=== PATIENT | male | born 1960 | race Caucasian/White ===

== ENCOUNTER 2021-10-14 00:20 | Emergency (ER) | payer MEDICARE ==
[2021-10-14 00:41] VITALS: O2SAT 98
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
[2021-10-14 00:50] LABS: Hematocrit 42.6 % (42-50); Hemoglobin 14.9 gm/dl (12.5-18.0); Mean Cell Volume 96.4 fl (78-100); Mean Corpuscular Hemoglobin 33.7 pg (26-32); Mean Platelet Volume 9.5 fl (7.5-11.0); Platelet Count 215 K/mm3 (150-450); Red Blood Count 4.42 M/mm3 (4.1-5.6); Red Cell Distribution Width 12.6 % (11.5-14.0); White Blood Count 6.9 K/mm3 (4.0-10.5)
[2021-10-14 01:03] LABS: ALBUMIN 4.4 g/dL (3.5-5.0); ALKALINE PHOSPHATASE 58 U/L (38-126); ANION GAP 19.9 MEQ/L (5-15); BLOOD UREA NITROGEN 20 mg/dL (9-20); CHLORIDE 101 mmol/L (98-107); Calcium 9.5 mg/dL (8.4-10.2); Carbon Dioxide 20 mmol/L (22-30); EST GLOMERULAR FILTRATION RATE > 60.0 ML/MIN; ETHYL ALCOHOL 20 mg/dL (0-10); Glucose 83 mg/dL (74-106); Potassium 3.9 mmol/L (3.5-5.1); SGOT/AST 51 U/L (17-59); SGPT/ALT 58 U/L (0-50); SODIUM 137 mmol/L (137-145)
[2021-10-14 03:41] VITALS: BP 117/86; PULSE 98
[2021-10-14 04:50] LABS: Eosinophil 4 % (0.00-3.0); Lymphocytes 35 % (24-44); Monocyte 10 % (0.0-12.0); Neutrophils 51 % (36.-66.); Platelet Estimate NORMAL (NORMAL); Total Cells Counted 100
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
== END 2021-10-14 01:26 ==
LOC: ED 00:20
DX: M54.2 Cervicalgia (principal); R07.9 Chest pain, unspecified; S81.811A Laceration without foreign body, right lower leg, initial encounter; S00.511A Abrasion of lip, initial encounter; V29.3XXA Motorcycle rider (driver) (passenger) injured in unspecified nontraffic accident, initial encounter; G20 Parkinson's disease; J44.9 Chronic obstructive pulmonary disease, unspecified; Z72.0 Tobacco use; Z79.899 Other long term (current) drug therapy
CPT/HCPCS: 36415; 72040; 80053; 85025; 93005; 99284; G0480; 80307

== ENCOUNTER 2022-01-03 15:48 | Day surgery (SDC) | payer MEDICARE ==
[2022-01-03] MEDS ORDERED: LIDOCAINE HCL 1% 50 MG/5 ML VL PF IJ ONE (15:49)
[2022-01-03] MEDS ORDERED: Decadron 4 MG INJ IV ONE (15:49)
[2022-01-03] MEDS ORDERED: Sodium Chloride 0.9(Preservative Free) 10 ML IJ ONE (15:49)
[2022-01-03] MEDS ORDERED: Lactated Ringers 1,000 ML IV ONE (17:19)
--- NOTE | 2022-01-03 18:13 | XRAY ---
Indication: Cervical DEJAN. Intraoperative fluoroscopy provided for 29 seconds. 2 digital spot image submitted for interpretation demonstrates posterior midline needle tip projecting posterior to the cervical thoracic junction. Small amount of contrast injected for needle tip placement. Correlate with intraoperative findings/report.
--- NOTE | 2022-01-04 12:53 | XRAY ---
29 seconds of fluoroscopy was used in surgery for a cervical DEJAN.
== END 2022-01-03 17:29 | disposition home or self-care (01) ==
LOC: SDC-PAIN 15:48
PROVIDERS: ATTEND Psychiatry & Neurology Pain Medicine
DX: M54.12 Radiculopathy, cervical region (principal); Z79.899 Other long term (current) drug therapy
CPT/HCPCS: 62321; 72040; 77003; J1100; J2001; Q9966

== ENCOUNTER 2022-01-10 21:52 | Emergency (ER) | payer MEDICARE ==
[2022-01-10] MEDS ORDERED: XYLOCAINE 1% HCL 20 ML MDV IJ ONE (21:53)
[2022-01-10 22:16] VITALS: O2SAT 98
[2022-01-10 22:27] LABS: Appearance SLIGHTLY CLOUDY (CLEAR); Bilirubin SMALL (NEGATIVE); Dipstick done @ ? MAIN LAB; Glucose NEGATIVE (NEGATIVE); Ketones NEGATIVE (NEGATIVE); Nitrite NEGATIVE (NEGATIVE); Ph 5.5 (5-6); Protein,Urine Dip 30 (Negative); RBC TRACE-LYSED Ery/ul (0-5); Specific Gravity >=1.030 (1.005-1.025); Urobilinogen 1 mg/dL (0-1)
[2022-01-10 22:29] LABS: Bacteria FEW /HPF (NEGATIVE); Mucus SLIGHT /HPF (NEGATIVE); WBC >100 /HPF (0-5)
[2022-01-10 22:32] LABS: Urine Cultured Indicated? YES
--- NOTE | 2022-01-10 22:34 | ERPHSYRPT ---
- History of Present Illness Time Seen by Provider: 01/10/22 22:15 Source: patient Exam Limitations: no limitations Patient Subjective Stated Complaint: pt states he has been having difficulty urinating and burning when urinating for last 4-5 days. since yesterday has been having lower back pain Triage Nursing Assessment: pt alert and oriented, answers questions approp. pt ambulatory with steady gait noted. respirations nonlabored. skin warm and dry. urine cloudy and elisha. Physician History: This is a 61-year-old white male has a history of prostate issues and hypertension. He has had difficulty urinating and last 4 to 5 days. It is been a long time since he seen a urologist. In the last 4 to 5 days he has noticed not only difficulty urinating but also flank pain and dysuria. He has no significant abdominal pain but does have some mild suprapubic pressure. He has no chest pain he has no shortness of breath. He has not had a fever. Timing/Duration: day(s) Activites at Onset: none Quality: burning (With urination) Onset Location: generalized flank Pain Radiation: right flank, left flank, other (Dysuria) Severity of Pain-Max: mild Severity of Pain-Current: mild Modifying Factors: Improves With: urinating (Burning and pain with urination) Associated Symptoms: dysuria, No fever, No chills Prior abdominal problems: none Sexual intercourse history: non-contributory Allergies/Adverse Reactions: codeine Allergy (Verified 01/10/22 22:16) Home Medications: Carbidopa/Levodopa [Carbidopa-Levodopa 25-100 Tab] 1 tab PO QID 10/14/21 [History] Duloxetine HCl 30 mg [Cymbalta 30 MG Capsule] 60 mg PO DAILY 10/14/21 [History] Hydroxyzine HCl 25 mg [Atarax 25 mg] 1 tab PO BID PRN 10/14/21 [History] Prazosin HCl 1 cap PO HS 10/14/21 [History] Propranolol HCl 1 tab PO TID 10/14/21 [History] Sildenafil Citrate 1 tab PO DAILY PRN 10/14/21 [History] Topiramate 1 tab PO BID 10/14/21 [History] Hx Tetanus, Diphtheria Vaccination/Date Given: Yes Hx Influenza Vaccination/Date Given: No Hx Pneumococcal Vaccination/Date Given: No Immunizations Up to Date: Yes Travel Risk - International Travel Have you traveled outside of the country in past 3 weeks: No - Coronavirus Screening Are you exhibiting any of the following symptoms?: No Close contact with a COVID-19 positive Pt in past 14-21 Days: No - Vaccine Status Have you recieved a Covid-19 vaccination: Yes 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[employer] - Past Medical History Pertinent Past Medical History: Yes Neurological History: No Pertinent History ENT History: Cataracts Cardiac History: No Pertinent History Respiratory History: COPD Endocrine Medical History: No Pertinent History Musculoskeletal History: Fractures GI Medical History: No Pertinent History History: No Pertinent History Psycho-Social History: Anxiety, Depression Male Reproductive Disorders: No Pertinent History Other Medical History: Parkinsons Disease, PTSD - Past Surgical History Past Surgical History: Yes Neuro Surgical History: No Pertinent History Cardiac: No Pertinent History Respiratory: No Pertinent History Gastrointestinal: Hernia Repair Genitourinary: No Pertinent History Musculoskeletal: No Pertinent History Male Surgical History: No Pertinent History Other Surgical History: throat surgery (stetching and mass removal). cervical epidural last week - Social History Smoking Status: Current every day smoker How long have you smoked: 50 years Exposure to second hand smoke: No Drug Use: none Patient Lives Alone: Yes - Review of Systems Constitutional: No Symptoms Eyes: No Symptoms Ears, Nose, & Throat: No Symptoms Respiratory: No Symptoms Cardiac: No Symptoms Abdominal/Gastrointestinal: Abdominal Pain (Suprapubic pressure) Genitourinary Symptoms: Dysuria, Flank Pain (Bilateral) Skin: No Symptoms Neurological: No Symptoms Psychological: No Symptoms Endocrine: No Symptoms Hematologic/Lymphatic: No Symptoms Immunological/Allergic: No Symptoms All Other Systems: Reviewed and Negative - Nursing Vital Signs Nursing Vital Signs: Initial Vital Signs Temperature 98.4 F 01/10/22 22:04 Pulse Rate 88 01/10/22 22:04 Respiratory Rate 16 01/10/22 22:04 Blood Pressure 99/75 01/10/22 22:04 O2 Sat by Pulse Oximetry 98 01/10/22 22:04 Pain Scale Pain Intensity 5 - Physical Exam General Appearance: no apparent distress, alert, anxiety Eye Exam: PERRL/EOMI, eyes nml inspection Ears, Nose, Throat Exam: normal ENT inspection, moist mucous membranes Neck Exam: normal inspection, non-tender, supple, full range of motion Respiratory Exam: normal breath sounds, lungs clear, airway intact, No chest tenderness, No respiratory distress Cardiovascular Exam: regular rate/rhythm, normal heart sounds, normal peripheral pulses Gastrointestinal/Abdomen Exam: soft, normal bowel sounds, No tenderness Rectal Exam: not done Back Exam: normal inspection, normal range of motion, CVA tenderness (Mild bilateral), No vertebral tenderness Extremity Exam: normal inspection, normal range of motion, pelvis stable Neurologic Exam: alert, oriented x 3, 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, 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, normal mood/affect, nml cerebellar function, nml station & gait, sensation nml Skin Exam: normal color, warm, dry Lymphatic Exam: No adenopathy SpO2 Interpretation: normal SpO2: 98 O2 Delivery: Room Air - Course Nursing assessment & vital signs reviewed: Yes Ordered Tests: Active Orders 24 hr Category Date Time Status CULTURE,URINE Stat Lab 01/10/22 22:16 Received UA W/RFX CULTURE Stat Lab 01/10/22 22:16 Completed Lab/Rad Data: Laboratory Results 01/10/22 Range/Units 22:16 Urinalys Dipstick Clnc MAIN LAB Urine Color YELLOW (YELLOW) Urine Appearance SLIGHTLY CLOUDY (CLEAR) Urine pH 5.5 (5-6) Ur Specific [place] >=1.030 (1.005-1.025) POC Urine Protein Conf 30 (Negative) Urine Ketones NEGATIVE (NEGATIVE) Urine Nitrite NEGATIVE (NEGATIVE) Urine Bilirubin SMALL (NEGATIVE) Urine Urobilinogen 1 (0-1) mg/dL Urine Leukocytes SMALL (NEGATIVE) Urine WBC (Auto) >100 (0-5) /HPF Urine RBC (Auto) 6-10 (0-2) /HPF U Epithel Cells (Auto) NONE (FEW) /HPF Urine Bacteria (Auto) FEW (NEGATIVE) /HPF Urine RBC TRACE-LYSED (0-5) Jean Claude/ul Calcium Oxalate Crystal 11-25 (NEGATIVE) /HPF Urine Mucus (Auto) SLIGHT (NEGATIVE) /HPF Ur Culture Indicated? YES Urine Glucose NEGATIVE (NEGATIVE) mg/dL - Progress Progress: improved, pain not gone completely Counseled pt/family regarding: lab results, diagnosis, need for follow-up - Departure Departure Disposition: Home Clinical Impression: UTI (urinary tract infection) Condition: Stable Critical Care Time: No Additional Instructions: Drink plenty of fluids. Take your medication as prescribed. May add Tylenol and ibuprofen for pain control if there are no contraindications. Follow-up with a urologist for further evaluation of your prostate and urinary issues. Prescriptions: Ciprofloxacin [Cipro 500 MG] 500 mg PO BID #14 tablet Phenazopyridine HCl 200 mg [Pyridium 200 mg] 200 mg PO TID #6 tablet
[2022-01-10] MEDS ORDERED: Rocephin 1000 MG INJ IM ONE (22:39)
[2022-01-10] MEDS ORDERED: PYRIDIUM 200 MG PO ONE (22:40)
[2022-01-10] MEDS ORDERED: PYRIDIUM 200 MG ONE (22:47)
[2022-01-10] MEDS ORDERED: Rocephin 1000 MG INJ ONE (22:47)
[2022-01-10 23:12] VITALS: BP 112/75; PULSE 82
== END 2022-01-10 23:10 | disposition home or self-care (01) ==
LOC: ED 21:52
DX: N39.0 Urinary tract infection, site not specified (principal); R30.0 Dysuria; R10.9 Unspecified abdominal pain; I10 Essential (primary) hypertension; J44.9 Chronic obstructive pulmonary disease, unspecified; Z72.0 Tobacco use; Z79.899 Other long term (current) drug therapy
CPT/HCPCS: 81015; 87086; 96372; 99283; J0696; A9270-GY

== ENCOUNTER 2022-02-07 14:26 | Day surgery (SDC) | payer MEDICARE ==
[2022-02-07] MEDS ORDERED: Sodium Chloride 0.9(Preservative Free) 10 ML IJ ONE (14:27)
[2022-02-07] MEDS ORDERED: XYLOCAINE-MPF 1% 5ML SDV IJ ONE (14:27)
[2022-02-07] MEDS ORDERED: Decadron 4 MG INJ IV ONE (14:27)
[2022-02-07] MEDS ORDERED: Lactated Ringers 1,000 ML IV ONE (16:43)
--- NOTE | 2022-02-07 20:15 | XRAY ---
Indication: Cervical DEJAN. Intraoperative fluoroscopy provided for 29 seconds. 2 digital spot images submitted for interpretation demonstrates midline posterior needle tip projecting posterior to the cervicothoracic junction. Small amount of contrast injected for needle tip placement. Correlate with intraoperative findings/report.
--- NOTE | 2022-02-08 09:44 | XRAY ---
29 seconds of fluoroscopy was used in surgery for a cervical spine DEJAN.
== END 2022-02-07 17:00 | disposition home or self-care (01) ==
LOC: SDC-PAIN 14:26
PROVIDERS: ATTEND Psychiatry & Neurology Pain Medicine
DX: M54.12 Radiculopathy, cervical region (principal); Z79.899 Other long term (current) drug therapy
CPT/HCPCS: 62321; 72040; 77003; J1100; Q9966

== ENCOUNTER 2022-08-16 15:09 | Emergency (ER) | payer MEDICARE ==
--- NOTE | 2022-08-16 15:13 | ERPHSYRPT ---
- History of Present Illness Time Seen by Provider: 08/16/22 15:13 Historian: patient Exam Limitations: clinical condition Physician History: This is a 62-year-old white male patient of Dr. Anjana Garnica who presented emergently to the emergency department driven by his mother because of sudden onset of chest pain approximately 2-2 and half hours prior to evaluation in the emergency department. The patient noticed his heart racing at approximately 1 PM followed by sharp stabbing central substernal nonradiating chest pain. Patient had a similar episode several years ago and his recollection was that he passed out and when he woke up his symptoms were resolved. Patient has a history of COPD, PTSD, Parkinson's disease, anxiety and is a daily smoker of cigarettes. He states that there is been no new medications. He has never seen a head of it. He has no abdominal pain. He has had no fevers. Timing/Duration: today Activities at Onset: none Quality: sharpness, stabbing Location: substernal, central Chest Pain Radiation: no radiation Severity of Pain-Max: moderate Severity of Pain-Current: moderate Modifying Factors: Improves With: nothing Associated Symptoms: palpitations (Rapid heartbeat), No abdominal pain Prior Chest Pain/Cardiac Workup: no prior cardiac workup Nitro Today/Relief: no nitro taken today Aspirin Treatment Today: no aspirin today Allergies/Adverse Reactions: codeine Allergy (Verified 08/16/22 15:32) Home Medications: Carbidopa/Levodopa [Carbidopa-Levodopa 25-100 Tab] 1 tab PO QID 10/14/21 [History] Duloxetine HCl 30 mg [Cymbalta 30 MG Capsule] 60 mg PO DAILY 10/14/21 [History] Hydroxyzine HCl 25 mg [Atarax 25 mg] 1 tab PO BID PRN 10/14/21 [History] Prazosin HCl 1 cap PO HS 10/14/21 [History] Propranolol HCl 1 tab PO TID 10/14/21 [History] Sildenafil Citrate 1 tab PO DAILY PRN 10/14/21 [History] Topiramate 1 tab PO BID 10/14/21 [History] Hx Tetanus, Diphtheria Vaccination/Date Given: Yes Hx Influenza Vaccination/Date Given: No Hx Pneumococcal Vaccination/Date Given: No Travel Risk - International Travel Have you traveled outside of the country in past 3 weeks: No - Coronavirus Screening Are you exhibiting any of the following symptoms?: No Close contact with a COVID-19 positive Pt in past 14-21 Days: No - Vaccine Status Have you recieved a Covid-19 vaccination: Yes 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 Systems Constitutional: No Symptoms Eyes: No Symptoms Ears, Nose, & Throat: No Symptoms Respiratory: No Symptoms Cardiac: Chest Pain, Palpitations (Rapid heart rate upon arrival to the emergency department with SVT and heart rate on the monitor 224) Abdominal/Gastrointestinal: No Symptoms Genitourinary Symptoms: No Symptoms Musculoskeletal: No Symptoms Skin: No Symptoms Neurological: No Symptoms Psychological: No Symptoms Endocrine: No Symptoms Hematologic/Lymphatic: No Symptoms Immunological/Allergic: No Symptoms All Other Systems: Reviewed and Negative - Past Medical History Pertinent Past Medical History: Yes Neurological History: No Pertinent History ENT History: Cataracts Cardiac History: No Pertinent History Respiratory History: COPD Endocrine Medical History: No Pertinent History Musculoskeletal History: Fractures GI Medical History: No Pertinent History History: No Pertinent History Psycho-Social History: Anxiety, Depression Male Reproductive Disorders: No Pertinent History Other Medical History: Parkinsons Disease, PTSD - Past Surgical History Past Surgical History: Yes Neuro Surgical History: No Pertinent History Cardiac: No Pertinent History Respiratory: No Pertinent History Gastrointestinal: Hernia Repair Genitourinary: No Pertinent History Musculoskeletal: No Pertinent History Male Surgical History: No Pertinent History Other Surgical History: throat surgery (stetching and mass removal). cervical epidural last week - Social History Smoking Status: Current every day smoker How long have you smoked: 50 years Exposure to second hand smoke: No Drug Use: none Patient Lives Alone: Yes - Nursing Vital Signs Nursing Vital Signs: Initial Vital Signs Pulse Rate 218 H 08/16/22 15:10 Respiratory Rate 22 08/16/22 15:10 O2 Sat by Pulse Oximetry 100 08/16/22 15:10 Pain Scale Pain Intensity 2 - Physical Exam General Appearance: moderate distress, alert, anxiety, thin Eye Exam: PERRL/EOMI, eyes nml inspection Ears, Nose, Throat Exam: normal ENT inspection, TM abnormal (L) Neck Exam: normal inspection, non-tender, supple, full range of motion Respiratory Exam: normal breath sounds, chest tenderness, lungs clear, airway intact, No respiratory distress Cardiovascular Exam: tachycardia Gastrointestinal/Abdomen Exam: soft, normal bowel sounds, No tenderness Rectal Exam: not done Back Exam: normal inspection, normal range of motion, No CVA tenderness, No vertebral tenderness Extremity Exam: normal inspection, normal range of motion, pelvis stable Neurologic Exam: alert, oriented x 3, 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 There is narrow QRS complex. The pattern is regular. This twelve-lead EKG was interpreted by me) Ordered Tests: Active Orders 24 hr Category Date Time Status Clean Catch Urine Specimen STAT Care 08/16/22 15:51 Active EKG-ER Only STAT Care 08/16/22 15:51 Active Pulse Oximetry (ED) STAT Care 08/16/22 15:51 Active CBC W DIFF Stat Lab 08/16/22 16:20 Completed CMP Stat Lab 08/16/22 16:20 Completed D-DIMER QUANTITATIVE Stat Lab 08/16/22 16:20 Completed PROTIME WITH INR Stat Lab 08/16/22 16:20 Completed TROPONIN Q4H Lab 08/16/22 16:20 Completed TROPONIN Q4H Lab 08/16/22 20:45 Ordered Urine Triage Profile Stat Lab 08/16/22 16:36 Completed Medication Summary Generic Name Dose Route Start Last Admin Trade Name Freq PRN Reason Stop Dose Admin Nitroglycerin/Dextrose 250 mls @ 1.5 mls/hr 08/16/22 17:37 Ntg 0.2mg/Ml In D5w Glass IV 09/15/22 17:36 .Q24H PRN CHEST PAIN Protocol 5 MCG/MIN Discontinued Medications Generic Name Dose Route Start Last Admin Trade Name Freq PRN Reason Stop Dose Admin Adenosine Confirm 08/16/22 15:14 Adenosine 6 Mg/2 Ml Vial Administered 08/16/22 15:15 Dose 18 mg IV .STK-MED ONE Aspirin 324 mg 08/16/22 15:51 08/16/22 16:17 Aspirin 81 Mg Tab.Chew PO 08/16/22 15:52 324 mg STAT ONE Administration Sodium Chloride Confirm 08/16/22 15:14 Sodium Chloride 0.9% 1000 Ml Administered 08/16/22 15:15 Dose 1,000 mls @ ud .ROUTE .STK-MED ONE Metoprolol Tartrate 5 mg 08/16/22 15:37 08/16/22 15:39 Metoprolol Tartrate 5 Mg/5 Ml Vial IV 08/16/22 15:38 5 mg STAT ONE Administration Metoprolol Tartrate Confirm 08/16/22 15:38 Metoprolol Tartrate 5 Mg/5 Ml Vial Administered 08/16/22 15:39 Dose 5 mg IV .STK-MED ONE Morphine Sulfate 4 mg 08/16/22 17:12 08/16/22 17:31 Morphine Sulfate 4 Mg/Ml Injection IV 08/16/22 17:13 4 mg STAT ONE Administration Morphine Sulfate Confirm 08/16/22 17:24 Morphine Sulfate 4 Mg/Ml Injection Administered 08/16/22 17:25 Dose 4 mg .ROUTE .STK-MED ONE Ondansetron HCl 4 mg 08/16/22 17:12 08/16/22 17:26 Ondansetron Hcl 4 Mg/2 Ml Vial IV 08/16/22 17:13 4 mg STAT ONE Administration Ondansetron HCl Confirm 08/16/22 17:23 Ondansetron Hcl 4 Mg/2 Ml Vial Administered 08/16/22 17:24 Dose 4 mg .ROUTE .STK-MED ONE Lab/Rad Data: Laboratory Result Diagrams 08/16/22 16:20 08/16/22 16:20 Laboratory Results 08/16/22 08/16/22 08/16/22 Range/Units 16:36 16:20 16:20 WBC (4.0-10.5) x10^3/uL RBC (4.1-5.6) x10^6/uL Hgb (12.5-18.0) g/dL Hct (42-50) % MCV (78-100) fL MCH (26-32) pg MCHC (32-36) g/dL RDW (11.5-14.0) % Plt Count (150-450) x10^3/uL MPV (7.5-11.0) fL Gran % (36.0-66.0) % Immature Gran % (Auto) (0.00-0.4) % Nucleat RBC Rel Count (0.00-0.1) % Eos # (Auto) (0-0.5) x10^3/uL Immature Gran # (Auto) (0.00-0.03) x10^3u/L Absolute Lymphs (auto) (1.0-4.6) x10^3/uL Absolute Monos (auto) (0.0-1.3) x10^3/uL Absolute Nucleated RBC (0.00-0.01) x10^3u/L Lymphocytes % (24.0-44.0) % Monocytes % (0.0-12.0) % Eosinophils % (0.00-5.0) % Basophils % (0.0-0.4) % Absolute Granulocytes (1.4-6.9) x10^3/uL Basophils # (0-0.4) x10^3/uL PT 11.9 (9.4-12.5) SECONDS INR 1.14 (0.8-3.0) D-Dimer < 0.19 (0.0-0.50) mg/L Sodium (137-145) mmol/L Potassium (3.5-5.1) mmol/L Chloride (98-107) mmol/L Carbon Dioxide (22-30) mmol/L Anion Gap (5-15) MEQ/L BUN (9-20) mg/dL Creatinine (0.66-1.25) mg/dL Estimated GFR ML/MIN Glucose (74-106) mg/dL Calcium (8.4-10.2) mg/dL Total Bilirubin (0.2-1.3) mg/dL AST (17-59) U/L ALT (0-50) U/L Alkaline Phosphatase (38-126) U/L Troponin I < 0.012 (0.000-0.034) ng/mL Serum Total Protein (6.3-8.2) g/dL Albumin (3.5-5.0) g/dL Urine Opiates Level NEGATIVE (NEGATIVE) Ur Methadone NEGATIVE (NEGATIVE) Urine Barbiturates NEGATIVE (NEGATIVE) Ur Phencyclidine (PCP) NEGATIVE (NEGATIVE) Urine Amphetamine NEGATIVE (NEGATIVE) U Benzodiazepine Level NEGATIVE (NEGATIVE) Urine Cocaine NEGATIVE (NEGATIVE) Urine Marijuana (THC) POSITIVE (NEGATIVE) 02/02/23 02/02/23 Range/Units 16:20 16:20 WBC 7.1 (4.0-10.5) x10^3/uL RBC 4.82 (4.1-5.6) x10^6/uL Hgb 15.6 (12.5-18.0) g/dL Hct 45.1 (42-50) % MCV 93.6 (78-100) fL MCH 32.4 H (26-32) pg MCHC 34.6 (32-36) g/dL RDW 12.0 (11.5-14.0) % Plt Count 204 (150-450) x10^3/uL MPV 9.5 (7.5-11.0) fL Gran % 70.3 H (36.0-66.0) % Immature Gran % (Auto) 0.1 (0.00-0.4) % Nucleat RBC Rel Count 0.0 (0.00-0.1) % Eos # (Auto) 0.29 (0-0.5) x10^3/uL Immature Gran # (Auto) 0.01 (0.00-0.03) x10^3u/L Absolute Lymphs (auto) 1.29 (1.0-4.6) x10^3/uL Absolute Monos (auto) 0.49 (0.0-1.3) x10^3/uL Absolute Nucleated RBC 0.00 (0.00-0.01) x10^3u/L Lymphocytes % 18.2 L (24.0-44.0) % Monocytes % 6.9 (0.0-12.0) % Eosinophils % 4.1 (0.00-5.0) % Basophils % 0.4 (0.0-0.4) % Absolute Granulocytes 4.97 (1.4-6.9) x10^3/uL Basophils # 0.03 (0-0.4) x10^3/uL PT (9.4-12.5) SECONDS INR (0.8-3.0) D-Dimer (0.0-0.50) mg/L Sodium 137 (137-145) mmol/L Potassium 4.3 (3.5-5.1) mmol/L Chloride 108 H (98-107) mmol/L Carbon Dioxide 27 (22-30) mmol/L Anion Gap 7.4 (5-15) MEQ/L BUN 16 (9-20) mg/dL Creatinine 0.88 (0.66-1.25) mg/dL Estimated GFR > 60.0 ML/MIN Glucose 91 (74-106) mg/dL Calcium 8.6 (8.4-10.2) mg/dL Total Bilirubin 0.40 (0.2-1.3) mg/dL AST 40 (17-59) U/L ALT 52 H (0-50) U/L Alkaline Phosphatase 62 (38-126) U/L Troponin I (0.000-0.034) ng/mL Serum Total Protein 6.6 (6.3-8.2) g/dL Albumin 4.1 (3.5-5.0) g/dL Urine Opiates Level (NEGATIVE) Ur Methadone (NEGATIVE) Urine Barbiturates (NEGATIVE) Ur Phencyclidine (PCP) (NEGATIVE) Urine Amphetamine (NEGATIVE) U Benzodiazepine Level (NEGATIVE) Urine Cocaine (NEGATIVE) Urine Marijuana (THC) (NEGATIVE) - Progress Progress: improved, re-examined Air Movement: good Progress Note: 08/16/22 16:03 Second twelve-lead EKG that I interpreted myself was performed on 08/16/2022 at 1519. This twelve-lead EKG was performed after patient received 6 mg of intravenous adenosine followed by 12 mg intravenous adenosine. The patient's heart rate is 110 bpm. The pattern is sinus tachycardia. There is normal QRS. There is normal intervals. There is normal axis. There is no evidence of any acute ischemic changes present. Third twelve-lead EKG was performed as a follow-up on 08/16/2022 at 1528. This is interpreted by me as well. Heart rate is 90 bpm and it is normal sinus rhythm with a normal axis, normal QRS, normal intervals and no acute ischemic changes present. 08/16/22 17:13 Reexamination was performed of this patient. He was complaining of some chest pain that is much more mild and again nonradiating the same region as before. Repeat twelve-lead EKG was interpreted by me and it shows heart rate of 76 bpm. The patient is in normal sinus rhythm. The computer interpretation shows minimal ST elevation in the inferior leads. When I interpret this I do not see significant ST elevation. We are awaiting the patient's troponin level. 08/16/22 18:59 Medical decision making: This patient's medical issue is high complexity. The work-up, the management and the discharge planning are all based on the patient's presenting complaint, history, review of medication list and review of the patient's allergies as well as the physical exam findings. Patient immediately was placed in emergency room bed 4 and was found to have SVT on twelve-lead EKG which I interpreted. The patient received an in the venous line and an EKG was obtained to determine the patient was in SVT. We then gave the patient adenosine x2 different doses which converted the patient to normal sinus rhythm. We then added 5 mg of intravenous Lopressor. We awaited the patient return of his laboratory data. I reviewed this as well. The patient has a non- STEMI and SVT. He had another episode of chest pain. I repeated the twelve- lead EKG a third time and did not feel the patient had any ST elevation but did have persistent chest pain. Therefore, I contacted the emergency room physician at [facility] in [facility] which is a higher level of care. I spoke with the emergency room physician Dr. Lawrence and after he reviewed the twelve-lead EKG which we faxed over to him, he excepted the patient. Initially he had spoken about putting the patient on a nitroglycerin drip. However I do not feel comfortable placing this patient who had some changes in the inferior wall on the twelve-lead EKG on nitroglycerin. The patient will be transported to the emergency department directly at [facility] in [facility]. This was discussed with the patient and he agrees with this plan. Counseled pt/family regarding: lab results, diagnosis, need for follow-up - Departure Departure Disposition: Transfer Clinical Impression: Supraventricular tachycardia, Chest pain Condition: Stable Critical Care Time: Yes Critical Care Time(excluding separately billable procedures): Critical 30-74 mins (45 minutes) Referrals: MEERA GARNICA [Primary Care Provider] - Follow up/PCP as directed
[2022-08-16] MEDS ORDERED: Sodium Chloride 0.9% 1000 ML 1,000 ML ONE (15:14)
[2022-08-16] MEDS ORDERED: Adenocard IV 6 MG/2 ML IV ONE (15:14)
[2022-08-16] MEDS ORDERED: LOPRESSOR INJECTION IV ONE ×2 (15:37→15:38)
[2022-08-16] MEDS ORDERED: BABY ASPIRIN 81 MG CHEW PO ONE (15:51)
[2022-08-16 16:28] LABS: Absolute Neutrophil Ct (ANC) 4.97 x10^3/uL (1.4-6.9); BASOPHIL % 0.4 % (0.0-0.4); Basophil (Absolute #) 0.03 x10^3/uL (0-0.4); Eosinophil % 4.1 % (0.00-5.0); Eosinophil (Absolute #) 0.29 x10^3/uL (0-0.5); Hematocrit 45.1 % (42-50); Hemoglobin 15.6 g/dL (12.5-18.0); IMMATURE GRAN # 0.01 x10^3u/L (0.00-0.03); IMMATURE GRAN % 0.1 % (0.00-0.4); Lymphocyte (Absolute #) 1.29 x10^3/uL (1.0-4.6); Lymphocytes % 18.2 % (24.0-44.0); Mean Cell Volume 93.6 fL (78-100); Mean Corpuscular Hemoglobin 32.4 pg (26-32); Mean Corpuscular Hgb Concent. 34.6 g/dL (32-36); Mean Platelet Volume 9.5 fL (7.5-11.0); Monocyte (Absolute #) 0.49 x10^3/uL (0.0-1.3); Monocytes % 6.9 % (0.0-12.0); Neutrophil % 70.3 % (36.0-66.0); Platelet Count 204 x10^3/uL (150-450); Red Blood Count 4.82 x10^6/uL (4.1-5.6); White Blood Count 7.1 x10^3/uL (4.0-10.5)
[2022-08-16 16:40] LABS: ALBUMIN 4.1 g/dL (3.5-5.0); ALKALINE PHOSPHATASE 62 U/L (38-126); ANION GAP 7.4 MEQ/L (5-15); BLOOD UREA NITROGEN 16 mg/dL (9-20); CHLORIDE 108 mmol/L (98-107); Calcium 8.6 mg/dL (8.4-10.2); Carbon Dioxide 27 mmol/L (22-30); Creatinine 1 0.88 mg/dL (0.66-1.25); EST GLOMERULAR FILTRATION RATE > 60.0 ML/MIN; Glucose 91 mg/dL (74-106); Potassium 4.3 mmol/L (3.5-5.1); SGOT/AST 40 U/L (17-59); SGPT/ALT 52 U/L (0-50); SODIUM 137 mmol/L (137-145); Total Protein 6.6 g/dL (6.3-8.2)
[2022-08-16 16:45] LABS: D-DIMER QUANTITATIVE < 0.19 mg/L (0.0-0.50); INR 1.14 (0.8-3.0); PROTIME 11.9 SECONDS (9.4-12.5)
[2022-08-16] MEDS ORDERED: MORPHINE SULFATE 4 MG INJ IV ONE (17:12)
[2022-08-16] MEDS ORDERED: Zofran 4 MG/2 ML VIAL IV ONE (17:12)
[2022-08-16] MEDS ORDERED: Zofran 4 MG/2 ML VIAL ONE (17:23)
[2022-08-16] MEDS ORDERED: MORPHINE SULFATE 4 MG INJ ONE (17:24)
[2022-08-16] MEDS ORDERED: Ntg 0.2MG/Ml in D5W GLASS*** 250 ML IV PRN (17:37)
[2022-08-16 17:51] LABS: Amphetamine,Urine NEGATIVE (NEGATIVE); Barbiturate,Urine NEGATIVE (NEGATIVE); Benzodiazepine,Urine NEGATIVE (NEGATIVE); Cocaine,Urine NEGATIVE (NEGATIVE); Methadone,Urine NEGATIVE (NEGATIVE); Opiate,Urine NEGATIVE (NEGATIVE); PCP,Urine NEGATIVE (NEGATIVE); THC,Urine POSITIVE (NEGATIVE)
[2022-08-16 18:51] VITALS: BP 124/91; PULSE 78; O2SAT 99
== END 2022-08-16 19:15 | disposition short-term general hospital (02) ==
LOC: ED 15:09
DX: I47.1 Supraventricular tachycardia (principal); R07.9 Chest pain, unspecified; Z79.899 Other long term (current) drug therapy; Z72.0 Tobacco use
CPT/HCPCS: 36000; 36415; 80053; 80307; 84484; 85025; 85379; 85610; 93005; 94760; 96374; 96375; 99285; 99291; J0153; J2270; J2405; A9270-GY

== ENCOUNTER 2022-09-12 13:29 | Emergency (ER) | payer MEDICARE ==
[2022-09-12 13:38] VITALS: BP 155/95; PULSE 78; O2SAT 99
--- NOTE | 2022-09-12 13:47 | ERPHSYRPT ---
- History of Present Illness Time Seen by Provider: 09/12/22 13:31 Source: patient Exam Limitations: no limitations Patient Subjective Stated Complaint: Abscess Triage Nursing Assessment: Patient ambulated back to ED and transferred self to bed. Patient A+O X 3. Patient's skin pink, warm and dry. Patient states he was bit by a spider sometime last week. Patient as area to left forearm. Patient complains of pain 8/10. Patient has small raised area with black in the middle with redness and warmth around to the upper forearm. Physician History: Left forearm cellulitis. 1 week. States he was bit by a spider. Has been putting Neosporin on it. Some systemic signs of illness. Patient states he has had fever, chills. No tachycardia here, no fever, no signs of sepsis or other severe, sinister infection. Allergies/Adverse Reactions: codeine Allergy (Verified 09/12/22 13:33) Home Medications: Carbidopa/Levodopa [Carbidopa-Levodopa 25-100 Tab] 1 tab PO QID 10/14/21 [History] Duloxetine HCl 30 mg [Cymbalta 30 MG Capsule] 60 mg PO DAILY 10/14/21 [History] Hydroxyzine HCl 25 mg [Atarax 25 mg] 1 tab PO BID PRN 10/14/21 [History] Prazosin HCl 1 cap PO HS 10/14/21 [History] Propranolol HCl 1 tab PO TID 10/14/21 [History] Sildenafil Citrate 1 tab PO DAILY PRN 10/14/21 [History] Topiramate 1 tab PO BID 10/14/21 [History] Hx Tetanus, Diphtheria Vaccination/Date Given: Yes Hx Influenza Vaccination/Date Given: No Hx Pneumococcal Vaccination/Date Given: No Immunizations Up to Date: Yes Travel Risk - International Travel Have you traveled outside of the country in past 3 weeks: No - Coronavirus Screening Are you exhibiting any of the following symptoms?: No Close contact with a COVID-19 positive Pt in past 14-21 Days: No - Vaccine Status Have you recieved a Covid-19 vaccination: Yes 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 Constitutional: No Fever, No Chills Eyes: No Symptoms Ears, Nose, & Throat: No Symptoms Respiratory: No Cough, No Dyspnea Cardiac: No Chest Pain, No Edema, No Syncope Abdominal/Gastrointestinal: No Abdominal Pain, No Nausea, No Vomiting, No Nancy rrhea Genitourinary Symptoms: No Dysuria Musculoskeletal: Other (Forearm cellulitis), No Back Pain, No Neck Pain Skin: No Rash Neurological: No Dizziness, No Focal Weakness, No Sensory Changes Psychological: No Symptoms Endocrine: No Symptoms All Other Systems: Reviewed and Negative - Past Medical History Pertinent Past Medical History: Yes Neurological History: No Pertinent History ENT History: Cataracts Cardiac History: No Pertinent History Respiratory History: COPD Endocrine Medical History: No Pertinent History Musculoskeletal History: Fractures GI Medical History: No Pertinent History History: No Pertinent History Psycho-Social History: Anxiety, Depression Male Reproductive Disorders: No Pertinent History Other Medical History: Parkinsons Disease, PTSD - Past Surgical History Past Surgical History: Yes Neuro Surgical History: No Pertinent History Cardiac: No Pertinent History Respiratory: No Pertinent History Gastrointestinal: Hernia Repair Genitourinary: No Pertinent History Musculoskeletal: No Pertinent History Male Surgical History: No Pertinent History Other Surgical History: throat surgery (stetching and mass removal). cervical epidural last week - Social History Smoking Status: Current every day smoker How long have you smoked: 50 years Exposure to second hand smoke: No Drug Use: none Patient Lives Alone: Yes - Nursing Vital Signs Nursing Vital Signs: Initial Vital Signs Temperature 98.3 F 09/12/22 13:34 Pulse Rate 78 09/12/22 13:34 Respiratory Rate 18 09/12/22 13:34 Blood Pressure 155/95 09/12/22 13:34 O2 Sat by Pulse Oximetry 99 09/12/22 13:34 Pain Scale Pain Intensity 8 - Physical Exam General Appearance: no apparent distress, alert Eye Exam: PERRL/EOMI, eyes nml inspection Ears, Nose, Throat Exam: normal ENT inspection, TMs normal, pharynx normal, moist mucous membranes Neck Exam: normal inspection, non-tender, supple, full range of motion Respiratory Exam: normal breath sounds, lungs clear, No respiratory distress Cardiovascular Exam: regular rate/rhythm, normal heart sounds, normal peripheral pulses Gastrointestinal/Abdomen Exam: soft, normal bowel sounds, No tenderness, No mass Back Exam: normal inspection, normal range of motion, No CVA tenderness, No vertebral tenderness Extremity Exam: normal inspection, normal range of motion, pelvis stable, other (2 cm x 3 cm area of left forearm cellulitis. No fluctuance, no abscess.) Neurologic Exam: alert, oriented x 3, cooperative, normal mood/affect, nml cerebellar function, nml station & gait, sensation nml, No motor deficits Skin Exam: normal color, warm, dry, No rash Lymphatic Exam: No adenopathy SpO2: 99 - Course Nursing assessment & vital signs reviewed: Yes - Progress Progress: improved Progress Note: 09/12/22 13:48 No area of drainable fluctuance on my exam. Will treat with doxycycline going home. Patient will need to return here for new or changing symptoms. Otherwise, follow-up with PCP. Counseled pt/family regarding: diagnosis, need for follow-up - Departure Departure Disposition: Home Clinical Impression: Left arm cellulitis Condition: Stable Critical Care Time: No Referrals: MEERA GARNICA [Primary Care Provider] - Follow up/PCP as directed Instructions: Wound Infection Prescriptions: Doxycycline Hyclate 100 mg [Vibramycin 100 MG] 100 mg PO BID #14 tab
== END 2022-09-12 13:57 | disposition home or self-care (01) ==
LOC: ED 13:29
DX: L03.114 Cellulitis of left upper limb (principal); R50.9 Fever, unspecified; J44.9 Chronic obstructive pulmonary disease, unspecified; Z79.899 Other long term (current) drug therapy; Z72.0 Tobacco use
CPT/HCPCS: 99281